=== PATIENT | male | born 1995 | race Caucasian/White ===

== ENCOUNTER 2024-07-15 11:48 | Emergency (ER) | payer SELFPAY | END 2024-07-15 14:04 | disposition home or self-care (01) | LOC: MW.ED 11:48 | DX: G89.29 Other chronic pain (principal); M54.50 Low back pain, unspecified; Z90.49 Acquired absence of other specified parts of digestive tract; Z86.16 Personal history of COVID-19; Z79.899 Other long term (current) drug therapy; Z75.8 Other problems related to medical facilities and other health care | CPT/HCPCS: 99283 ==